=== PATIENT | male | born 1945 | race Hispanic/Latino ===

== ENCOUNTER 2024-05-22 09:12 | Emergency (ER) | payer OTHER ==
[2024-05-22] MEDS ORDERED: Magnesium 2 GM/50 ML BAG (IN WATER) ONE (09:32)
[2024-05-22 09:56] LABS: ALT (SGPT) 27 U/L (8-55); AST (SGOT) 29 U/L (5-34); Albumin 4.1 g/dL (3.4-4.8); Alkaline Phosphatase 109 U/L (40-110); Anion Gap 17 mmol/L (10-20); BUN (Urea Nitrogen) 16 mg/dL (8.4-25.7); Calc. Creatinine Clearance 0 mL/min (70-130); Calcium 10.1 mg/dL (7.8-10.44); Carbon Dioxide 26 mmol/L (23-31); Chloride 100 mmol/L (98-107); Estimated GFR 50; Globulin 4.5 g/dL (2.4-3.5); Glucose 108 mg/dL (83-110); Magnesium 1.8 mg/dL (1.6-2.6); Potassium 3.6 mmol/L (3.5-5.1); Protein, Total 8.6 g/dL (5.8-8.1); Sodium 139 mmol/L (136-145); Troponin I 0.041 ng/mL (< 0.028)
[2024-05-22 09:57] LABS: Hematocrit 48.2 % (38.8-50.0); Hemoglobin 15.6 g/dL (13.5-17.5); Mean Corpuscular HGB CONC 32.4 g/dL (32.0-36.0); Mean Corpuscular Hemoglobin 29.2 pg (27.0-33.0); Mean Corpuscular Volume 90.1 fL (81.2-95.1); RBC Distribution Width 14.1 % (11.5-14.5); Red Blood Cell (RBC) Count 5.35 10x6/uL (4.32-5.72); White Blood Cell (WBC) Count 25.4 10x3/uL (3.5-10.5)
[2024-05-22 10:25] LABS: MDiff Complete? YES; Mean Platelet Volume 11.9 fL (7.4-10.4); Platelet Count 122 10x3/uL (150-450)
[2024-05-22 10:30] LABS: Band 15 % (5-11); Lymphocytes 8 % (21-51); Monocytes 20 % (0-10); Neutrophil 56 % (42-75); Reactive Lymphocytes 1 % (0-10)
[2024-05-22 10:33] LABS: Large Platelets SLIGHT (None Seen); Platelet Adequacy Comment Appears Decreased; Platelet Clumps SLIGHT; RBC Morph Comment Within Normal Limits
[2024-05-22] MEDS ORDERED: VANCOMYCIN 2 GRAM/400 ML BAG 2 GM in Premix 1 BAG IVPB SCH (11:45)
[2024-05-22] MEDS ORDERED: Iopamidol 370 76% 100 ML VIAL ONE (14:43)
== END 2024-05-22 15:38 | disposition short-term general hospital (02) ==
LOC: EEVIPCON 09:12 → CSHERS 09:12
DX: L03.115 Cellulitis of right lower limb (principal); I48.91 Unspecified atrial fibrillation; I10 Essential (primary) hypertension; E78.5 Hyperlipidemia, unspecified; Z55.6 Problems related to health literacy
CPT/HCPCS: 36416; 71045; 71275; 80053; 83605; 83735; 83880; 84484; 85025; 85379; 87040; 87077; 87149; 87186; 93005; 94760; 96374; 96375; J3370; J3475; Q9967